=== PATIENT | female | born 1995 | race Caucasian/White ===

== ENCOUNTER 2018-03-02 10:25 | Emergency (ER) | payer MEDICAID ==
[2018-03-02] MEDS ORDERED: Albuterol/Ipratropium 3.0-0.5 MG/3 ML Neb Soln NEB ONE (11:26)
--- NOTE | 2018-03-02 11:31 | EDM.PDOC ---
ED HPI GENERAL MEDICAL PROBLEM - General Chief Complaint: Respiratory Problem Stated Complaint: COUGH Time Seen by Provider: 03/02/18 11:04 Source of Information: Reports: Patient History Limitations: Reports: No Limitations - History of Present Illness INITIAL COMMENTS - FREE TEXT/NARRATIVE: 23 yo female presents with cough and congestion. 2 week hx of cough. fatigue. post pertussis emesis. she does vape with nicotine she has been doing that for 3 months. SOB with exertion. wheezing. nonasthmatic Middle Chest Pain Score (Numeric/FACES): 9 - Related Data Allergies Allergy/AdvReac Type Severity Reaction Status Date / Time No Known Allergies Allergy Verified 04/30/14 22:55 Home Meds: Home Meds Control 1 tab PO DAILY 04/30/14 [History] Acetaminophen [Tylenol] 2 tab PO ASDIRECTED PRN 05/03/14 [History] Naproxen Sodium [Aleve] 1 tab PO BID 05/03/14 [History] Past Medical History - Past Health History Medical/Surgical History: Denies Medical/Surgical History Social & Family History - Tobacco Use Smoking Status *Q: Never Smoker - Caffeine Use Caffeine Use: Reports: Coffee, Soda, Tea - Recreational Drug Use Recreational Drug Use: No ED ROS GENERAL - Review of Systems Review Of Systems: See Below Constitutional: Reports: Fever, Chills, Fatigue HEENT: Reports: Sinus Problem Respiratory: Reports: Shortness of Breath, Wheezing, Cough, Sputum Cardiovascular: Denies: Chest Pain, Blood Pressure Problem GI/Abdominal: Reports: Nausea, Vomiting. Denies: Abdominal Pain Skin: Denies: Rash Neurological: Denies: Dizziness, Headache Psychiatric: Denies: Anxiety ED EXAM, GENERAL - Physical Exam Exam: See Below Exam Limited By: No Limitations General Appearance: Alert, WD/WN, No Apparent Distress Ears: Normal Canal, Normal TMs Ear Exam: Bilateral Ear: Other (clear effusions) Nose: Other (moderate erythema moderate edema) Throat/Mouth: Normal Inspection, Normal Lips, Normal Teeth, Other (post nasal drip) Head: Atraumatic, Normocephalic Neck: Normal Inspection, Supple, Non-Tender, Full Range of Motion, Lymphadenopathy (R), Lymphadenopathy (L) Respiratory/Chest: No Accessory Muscle Use, Rhonchi, Wheezing Cardiovascular: Regular Rate, Rhythm, No Murmur GI/Abdominal: Soft, Non-Tender Psychiatric: Normal Affect, Normal Mood Skin Exam: Warm, Dry, Intact, No Rash Course - Vital Signs Last Recorded V/S: Last Vital Signs Temp 36.5 C 03/02/18 10:51 Pulse 98 03/02/18 11:39 Resp 18 03/02/18 10:51 BP 136/87 03/02/18 10:51 Pulse Ox 97 03/02/18 10:51 - Orders/Labs/Meds Orders: Active Orders 24 hr Category Date Time Status RT Aerosol Therapy [RC] ASDIRECTED Care 03/02/18 11:26 Active Meds: Medications Discontinued Medications Generic Name Dose Route Start Last Admin Trade Name Freq PRN Reason Stop Dose Admin Albuterol/Ipratropium 3 ml 03/02/18 11:26 03/02/18 11:34 Duoneb 3.0-0.5 Mg/3 Ml NEB 03/02/18 11:27 3 ml ONETIME ONE Administration - Re-Assessments/Exams Free Text/Narrative Re-Assessment/Exam: 03/02/18 11:50 decrease in wheeze post neb treat will dc on Augmentin twice daily for 5 days. Prednisone burst Departure - Departure Time of Disposition: 11:52 Disposition: Home, Self-Care 01 Condition: Good Clinical Impression: Lower resp. tract infection - Discharge Information *PRESCRIPTION DRUG MONITORING PROGRAM REVIEWED*: Not Applicable *COPY OF PRESCRIPTION DRUG MONITORING REPORT IN PATIENT СЕРГЕЙ: Not Applicable Instructions: Acute Bronchitis, Adult, [id number] Referrals: PCP,None [Primary Care Provider] - Forms: ED Department Discharge Additional Instructions: Augmentin 500 mg twice daily for 5 days prednisone 20 mg 3 tablets for 2 days, 2 tablets for 2 days, 1 tablet for 3 days increase fluid intake with goal of 1.5 L per day - My Orders Last 24 Hours: My Active Orders 03/02/18 11:26 RT Aerosol Therapy [RC] ASDIRECTED - Assessment/Plan Last 24 Hours: My Active Orders 03/02/18 11:26 RT Aerosol Therapy [RC] ASDIRECTED
== END 2018-03-02 12:10 | disposition home or self-care (01) ==
LOC: JP.ED 10:25
DX: J22 Unspecified acute lower respiratory infection (principal); Z79.899 Other long term (current) drug therapy
CPT/HCPCS: 94640; 99283; J7620-GY

== ENCOUNTER 2019-04-05 15:56 | Emergency (ER) | payer MEDICAID ==
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
== END 2019-04-05 17:11 | disposition home or self-care (01) ==
LOC: JP.ED 15:56
DX: G44.319 Acute post-traumatic headache, not intractable (principal); V49.40XA Driver injured in collision with unspecified motor vehicles in traffic accident, initial encounter; Y92.410 Unspecified street and highway as the place of occurrence of the external cause
CPT/HCPCS: 99283

== ENCOUNTER 2019-10-01 07:34 | Emergency (ER) | payer MEDICAID ==
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
[2019-10-01] MEDS ORDERED: Albuterol/Ipratropium 3.0-0.5 MG/3 ML Neb Soln NEB ONE (08:39)
[2019-10-01] MEDS ORDERED: methylPREDNISolone Sodium Succinate 125 MG/2 ML SDV IVPUSH ONE (08:39)
--- NOTE | 2019-10-01 11:23 | CR ---
CHEST: 2 view CLINICAL HISTORY:Dyspnea COMPARISON:None FINDINGS: The heart size, pulmonary vascularity and hilar structures are normal. No infiltrate effusion or pneumothorax is seen. IMPRESSION: No acute cardiopulmonary process.
== END 2019-10-01 09:36 | disposition home or self-care (01) ==
LOC: JP.ED 07:34
DX: J45.909 Unspecified asthma, uncomplicated (principal)
CPT/HCPCS: 71046; 94640; 96374; 99283; J2930; J7620-GY

== ENCOUNTER 2020-01-01 19:28 | Emergency (ER) | payer MEDICAID ==
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
== END 2020-01-01 20:34 | disposition home or self-care (01) ==
LOC: JP.ED 19:28
DX: Z71.1 Person with feared health complaint in whom no diagnosis is made (principal)
CPT/HCPCS: 99282

== ENCOUNTER 2020-06-20 22:49 | Emergency (ER) | payer MEDICAID ==
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
== END 2020-06-20 23:33 | disposition home or self-care (01) ==
LOC: JP.ED 22:49
DX: S00.03XA Contusion of scalp, initial encounter (principal); S00.83XA Contusion of other part of head, initial encounter; J44.9 Chronic obstructive pulmonary disease, unspecified; E66.9 Obesity, unspecified; Z68.34 Body mass index [BMI] 34.0-34.9, adult; W50.0XXA Accidental hit or strike by another person, initial encounter
CPT/HCPCS: 99282; 99283

== ENCOUNTER 2021-02-13 13:30 | Emergency (ER) | payer MEDICAID ==
--- NOTE | 2021-02-13 15:03 | EDM.PDOC ---
ED HPI GENERAL MEDICAL PROBLEM - General Chief Complaint: Abdominal Pain Stated Complaint: ABD/PELVIC PAIN Time Seen by Provider: 02/13/21 14:08 Source of Information: Reports: Patient History Limitations: Reports: No Limitations - History of Present Illness INITIAL COMMENTS - FREE TEXT/NARRATIVE: 26 yo female presents to ER with left lower ABD pain. This pain has been present intermittently for over a year. it becomes very severe and last night it "brought me to my knees and I was crying" it is better today but still present. afebrile. denies N/V/D. LMP was 7 days ago and was normal for her, her cycles are regular. She is sexually active but only with females so denies possibility of . Left Lower Abdomen Pain Score (Numeric/FACES): 8 - Related Data Allergies Allergy/AdvReac Type Severity Reaction Status Date / Time No Known Allergies Allergy Verified 02/13/21 14:15 Home Meds: Home Meds Albuterol Sulfate [Albuterol Sulfate Hfa] 1 puff INH ASDIRECTED 10/01/19 [History] Albuterol/Ipratropium [DuoNeb 3.0-0.5 MG/3 ML] 1 dose INH ASDIRECTED 10/01/19 [History] Budesonide [Pulmicort Flexhaler] 2 puff IH Q6H 06/20/20 [History] Erenumab-Aooe [Aimovig Autoinjector] 1 dose IM Q30D 06/20/20 [History] Past Medical History - Past Health History Medical/Surgical History: Denies Medical/Surgical History Respiratory History: Reports: Asthma, COPD Neurological History: Reports: Brain Injury, Concussion, Headaches, Chronic, Head Trauma, Migraines Psychiatric History: Reports: Anxiety, Depression, Panic Attack, Suicide Attempt Endocrine/Metabolic History: Reports: Obesity/BMI 30+ - Past Surgical History HEENT Surgical History: Reports: Tonsillectomy Social & Family History - Caffeine Use Caffeine Use: Reports: Soda - Recreational Drug Use Recreational Drug Type: Reports: Marijuana/Hashish Recreational Drug Use Frequency: Daily ED ROS GENERAL - Review of Systems Review Of Systems: See Below Constitutional: Denies: Fever, Chills Respiratory: Reports: Wheezing (chronic). Denies: Shortness of Breath Cardiovascular: Reports: Chest Pain ED EXAM, GI/ABD - Physical Exam Exam: See Below Exam Limited By: No Limitations General Appearance: Alert, WD/WN, No Apparent Distress Head: Atraumatic, Normocephalic Respiratory/Chest: Lungs Clear, Normal Breath Sounds, No Accessory Muscle Use, Decreased Breath Sounds. No: Crackles, Rhonchi, Wheezing Cardiovascular: Regular Rate, Rhythm, No Murmur GI/Abdominal Exam: Normal Bowel Sounds, Soft, No Organomegaly, No Distention, Tender (left sided, worse LLQ). No: Guarding, Rigid Neurological: Alert, Oriented Psychiatric: Normal Affect, Normal Mood Skin Exam: Warm, Dry, Intact Course - Vital Signs Last Recorded V/S: Last Vital Signs Temp 36.5 C 02/13/21 14:14 Pulse 105 H 02/13/21 14:14 Resp 16 02/13/21 14:14 BP 137/91 H 02/13/21 14:14 Pulse Ox 97 02/13/21 14:14 - Orders/Labs/Meds Orders: Active Orders 24 hr Category Date Time Status Abdomen 2V AP Flat Upright [CR] Stat Exams 02/13/21 14:46 Taken Abdomen Pelvis w Cont [CT] Stat Exams 02/13/21 15:42 Stop Req Labs: Laboratory Tests 02/13/21 02/13/21 Range/Units 14:59 15:05 WBC 18.5 H (4.5-11.0) K/uL RBC 4.94 (3.30-5.50) M/uL Hgb 14.7 (12.0-15.0) g/dL Hct 42.9 (36.0-48.0) % MCV 87 (80-98) fL MCH 30 (27-31) pg MCHC 34 (32-36) % Plt Count 309 (150-400) K/uL Neut % (Auto) 30.1 L (36-66) % Lymph % (Auto) 13.5 L (24-44) % [place] % (Auto) 4.5 (2-6) % Eos % (Auto) 51.0 H (2-4) % Baso % (Auto) 0.9 (0-1) % Urine Color Yellow (YELLOW) Urine Appearance Clear (CLEAR) Urine pH 8.5 H (5.0-8.0) Ur Specific [place] 1.025 (1.008-1.030) Urine Protein Negative (NEGATIVE) mg/dL Urine Glucose (UA) Negative (NEGATIVE) mg/dL Urine Ketones Negative (NEGATIVE) mg/dL Urine Occult Blood Negative (NEGATIVE) Urine Nitrite Negative (NEGATIVE) Urine Bilirubin Negative (NEGATIVE) Urine Urobilinogen 0.2 (0.2-1.0) EU/dL Ur Leukocyte Esterase Negative (NEGATIVE) Urine RBC Not seen (0-5) Urine WBC Not seen (0-5) Ur Epithelial Cells Few Amorphous Sediment Not seen Urine Bacteria Few Urine Mucus Not seen - Re-Assessments/Exams Free Text/Narrative Re-Assessment/Exam: 02/13/21 15:54 pt was evaluate don arrival to the ER in no apparent distress. UA was not indicative of UTI, ABD x-ray normal stool load and normal gas patterning. WBC elevated. she remains afebrile. At this time she would like to follow-up with her PCP. She does not desire to continue work up of her ABD pain today in the ER. She was offered at CT of her ABD and pelvis. Departure - Departure Time of Disposition: 15:49 Disposition: Home, Self-Care 01 Condition: Good Clinical Impression: Left lateral abdominal pain - Discharge Information *PRESCRIPTION DRUG MONITORING PROGRAM REVIEWED*: Not Applicable *COPY OF PRESCRIPTION DRUG MONITORING REPORT IN PATIENT [id number]: Not Applicable Instructions: Abdominal Pain, Adult Referrals: Liza García PA-C [Primary Care Provider] - Forms: ED Department Discharge Additional Instructions: your do have a elevated white blood cell count but this can represent inflammation as well as infection. if you develop a fever I would like you to return to the emergency room your urine was normal without indication of infection Sepsis Event Note (ED) - Focused Exam Vital Signs: Vital Signs Temp Pulse Resp BP Pulse Ox 02/13/21 14:14 36.5 C 105 H 16 137/91 H 97 02/13/21 14:04 36.5 C 105 H 16 137/91 H 97 - My Orders Last 24 Hours: My Active Orders 02/13/21 14:46 Abdomen 2V AP Flat Upright [CR] Stat 02/13/21 15:42 Abdomen Pelvis w Cont [CT] Stat - Assessment/Plan Last 24 Hours: My Active Orders 02/13/21 14:46 Abdomen 2V AP Flat Upright [CR] Stat 02/13/21 15:42 Abdomen Pelvis w Cont [CT] Stat
--- NOTE | 2021-02-14 09:20 | CR ---
Abdomen 2V AP Flat Upright CLINICAL HISTORY: Left lower quadrant pain FINDINGS: No free air is identified. Small intestinal configuration is nonacute. There is gas and feces throughout the colon. There is some mild fecal retention Incidental note of some sclerosis of the right SI joint. IMPRESSION: Nonacute intestinal gas pattern Mild fecal retention
== END 2021-02-13 16:05 | disposition home or self-care (01) ==
LOC: JP.ED 13:30
DX: R10.32 Left lower quadrant pain (principal); J44.9 Chronic obstructive pulmonary disease, unspecified; E66.9 Obesity, unspecified; Z68.44 Body mass index [BMI] 60.0-69.9, adult; Z79.899 Other long term (current) drug therapy
CPT/HCPCS: 36415; 74019; 74019-26; 81001; 85025; 99284-25

== ENCOUNTER → 2022-03-12 | Emergency (ER) | payer MEDICAID ==
[~2022-03-12] MED LIST: HYDROmorphone 0.5 MG/0.5 ML Syringe ONE; Iopamidol 612 MG/ML 100 ML Bottle ONE; Ondansetron 4 MG/2 ML SDV ONE; Sodium Chloride 0.9% 500 ML IV ONE
[2022-04-06 12:24] LABS: ESTIMATED GFR 105 mL/min (>60)
== END ==
LOC: JP.ED 10:10
DX: K59.04 Chronic idiopathic constipation (principal)
CPT/HCPCS: 36415; 74177; 80053; 81001; 81025; 83690; 85025; 99284; J1170; J2405; J7030; Q9967; 96361; 96374; 96375

== ENCOUNTER 2023-05-05 11:48 | Emergency (ER) | payer MEDICAID ==
[2023-05-05] MEDS: Ibuprofen 400 MG Tab PO ONE (12:45)
== END 2023-05-05 12:55 | disposition home or self-care (01) ==
LOC: JP.ED 11:48
DX: M75.102 Unspecified rotator cuff tear or rupture of left shoulder, not specified as traumatic (principal); J44.9 Chronic obstructive pulmonary disease, unspecified; E66.9 Obesity, unspecified; Z68.32 Body mass index [BMI] 32.0-32.9, adult; Z79.899 Other long term (current) drug therapy
CPT/HCPCS: 73030; 99283; A9270